=== PATIENT | female | born 1940 | race Caucasian/White ===

== ENCOUNTER 2017-05-19 03:21 | Inpatient (IN) ==
[2017-05-19 04:15] LABS: Apearance,Urine CLEAR (Clear); Bilirubin,Urine Negative (Negative); Blood, Urine Negative (Negative); Glucose,Urine (UA) 150 mg/dL (Negative); Ketones,Urine Negative (Negative); Mucus,Urine Occasional /LPF (Occasional); Nitrite,Urine Negative (Negative); Protein,Urine 100 MG/DL; RBC,Urine 1 /HPF (0-4); Urine Color Straw (Yellow); Urine Specific Gravity 1.008 (1.001-1.035); Urine Urobilinogen < 2.0 EU/DL (0.2-1.0)
[2017-05-19 04:44] LABS: Basophils % 0.6 % (0.0-0.8); Eosinophils # 0.2 10*3/uL (0.0-0.87); Eosinophils % 2.5 % (0.00-10.9); Hematocrit 39.3 VOL% (35.7-47.0); Hemoglobin 13.3 GM/DL (12.0-16.0); Immature Granulocytes % 0.3 %; Immature Granulocytes Absolute 0.02 #; Lymphocytes # 1.9 10*3/uL (1.4-4.0); Lymphocytes % 26.8 % (21.3-54.2); Mean Corpuscular HGB Conc 33.8 GM/DL (32-36); Mean Corpuscular Hemoglobin 31 PG (27-34); Mean Corpuscular Volume 91.4 FL (87-102); Mean Platelet Volume 11.8 FL (9.6-12.0); Monocytes # 0.7 10*3/uL (0.11-0.8); Monocytes % 10.2 % (1.7-12.7); Neutrophils # 4.3 10*3/uL (1.4-7.4); Neutrophils % 59.6 % (38.7-73.9); Platelet Count 213 T/CUMM (130-400); Red Cell Distribution Width 12.5 % (9.3-17.3); White Blood Count 7.2 T/CUMM (4-12)
[2017-05-19 04:53] LABS: PT Patient Result 10.1 SECS; Partial Thromboplastin Time 23.8 SECS (0-40)
[2017-05-19 05:06] LABS: Alanine Aminotransferase 16 U/L (13-56); Albumin 3.2 G/DL (3.4-5.0); Alkaline Phosphatase 98 U/L (45-117); Aspartate Amino Transferase 28 U/L (0-37); Blood Urea Nitrogen 10 MG/DL (7-18); Calcium 8.4 MG/DL (8.5-10.1); Glucose 167 MG/DL (74-106); Osmolality,Calculated 275.8 MOS/KG (273-304); Potassium 3.8 MMOL/L (3.5-5.1); Sodium 137 MMOL/L (136-145); Total Protein 6.8 G/DL (6.4-8.3); Troponin I Only < 0.015 NG/ML (0.00-0.045)
[2017-05-19] MEDS ORDERED: ASPIRIN 325 MG TABLET PO STA (08:00)
[2017-05-19] MEDS ORDERED: NITROGLYCERIN SL 0.4 MG TABLET SL PRN (08:00)
[2017-05-19 08:35] LABS: PT Patient Result 10.2 SECS; Partial Thromboplastin Time 25.1 SECS (0-40)
[2017-05-19] MEDS ORDERED: THYROID PORK PO SCH (09:00)
[2017-05-19] MEDS ORDERED: PANTOPRAZOLE 40 MG TABLET PO SCH (09:00)
[2017-05-19] MEDS: GLUCOSAMINE 500 MG TABLET PO SCH (09:54)
[2017-05-19] MEDS: ATORVASTATIN 40 MG TABLET PO SCH (09:56)
[2017-05-19] MEDS: DONEPEZIL 10 MG TABLET PO SCH (09:58)
[2017-05-19] MEDS ORDERED: THYROID 60 MG TABLET PO SCH (10:22)
[2017-05-19] MEDS: LISINOPRIL 20 MG TABLET PO SCH (10:27)
[2017-05-19] MEDS: PANTOPRAZOLE 40 MG TABLET PO SCH (10:27)
[2017-05-19] MEDS: CHOLECALCIFEROL 1,000 UNIT TABLET PO SCH (10:27)
[2017-05-19] MEDS: ENOXAPARIN 40 MG/0.4 ML SYRINGE SUBCUT SCH (10:27)
[2017-05-19] MEDS: MULTIVITAMIN (CENTRUM) TABLET PO SCH (10:27)
[2017-05-19] MEDS: MAGNESIUM CHLORIDE 64 MG TABLET PO SCH (10:27)
[2017-05-19] MEDS: ACETAMINOPHEN 325 MG TABLET PO PRN ×3 (10:57→20:50)
[2017-05-19] MEDS ORDERED: CARBIDOPA/LEVODOPA 25-100 MG TABLET PO SCH (21:00)
[2017-05-20 04:28] LABS: Basophils # 0.1 10*3/uL (0.0-0.2); Basophils % 0.9 % (0.0-0.8); Eosinophils # 0.4 10*3/uL (0.0-0.87); Eosinophils % 4.8 % (0.00-10.9); Hematocrit 43.4 VOL% (35.7-47.0); Hemoglobin 14.8 GM/DL (12.0-16.0); Immature Granulocytes % 0.1 %; Immature Granulocytes Absolute 0.01 #; Lymphocytes # 3.4 10*3/uL (1.4-4.0); Lymphocytes % 44.7 % (21.3-54.2); Mean Corpuscular HGB Conc 34.1 GM/DL (32-36); Mean Corpuscular Hemoglobin 31 PG (27-34); Mean Corpuscular Volume 90.4 FL (87-102); Mean Platelet Volume 11.7 FL (9.6-12.0); Monocytes # 0.8 10*3/uL (0.11-0.8); Monocytes % 10.4 % (1.7-12.7); Neutrophils % 39.1 % (38.7-73.9); Platelet Count 240 T/CUMM (130-400); Red Cell Distribution Width 12.5 % (9.3-17.3); White Blood Count 7.6 T/CUMM (4-12)
[2017-05-20 05:04] LABS: Calcium 8.9 MG/DL (8.5-10.1); Magnesium 2.4 MG/DL (1.8-2.4); Osmolality,Calculated 273.7 MOS/KG (273-304); Potassium 4.2 MMOL/L (3.5-5.1); Risk Ratio 3.48; VLDL CHOLESTEROL 23.6 MG/DL
[2017-05-20] MEDS ORDERED: ASPIRIN EC 81 MG TABLET PO SCH (09:00)
[2017-05-20] MEDS: ENOXAPARIN 40 MG/0.4 ML SYRINGE SUBCUT SCH (09:35)
[2017-05-20 11:36] VITALS: BP 118/65
[2017-05-20] MEDS: MULTIVITAMIN (CENTRUM) TABLET PO SCH (12:52)
[2017-05-20] MEDS: DONEPEZIL 10 MG TABLET PO SCH (12:53)
[2017-05-20] MEDS: PANTOPRAZOLE 40 MG TABLET PO SCH (12:53)
[2017-05-20] MEDS: ATORVASTATIN 40 MG TABLET PO SCH (12:53)
[2017-05-20] MEDS: LISINOPRIL 20 MG TABLET PO SCH (12:53)
[2017-05-20] MEDS: MAGNESIUM CHLORIDE 64 MG TABLET PO SCH (12:53)
[2017-05-20] MEDS: GLUCOSAMINE 500 MG TABLET PO SCH (12:53)
[2017-05-20] MEDS: CHOLECALCIFEROL 1,000 UNIT TABLET PO SCH (12:54)
== END 2017-05-20 14:48 | disposition home or self-care (01) | DRG 313 ==
LOC: EDUNIT# → EDBD → N.ED 03:21 → N.EDINP 05:51 → N.TELES 07:26
PROVIDERS: ADMIT Hospitalist; ATTEND Hospitalist